=== PATIENT | female | born 1975 | race Two or more races ===

== ENCOUNTER → 2019-05-30 | Outpatient (CLI) | payer OTHER ==
[~2019-05-30] MED LIST: B-COTAB25 PO; CLOP75TA2 PO; FOLGTAB5 PO; ISOVUE-370 76% 100ML VIAL (Q9967) As Ordered ONE; MULTCAP PO; PROBCAP14 PO; RED1CAP5 PO; TAMO20TA8 PO; TURM1CAP5 PO
--- NOTE | 2019-05-30 17:37 | REPVR ---
PROCEDURE INFORMATION: Exam: CT Angiography Neck With Contrast Exam date and time: 05/30/2019 3:51 PM Age: 44 years old Clinical indication: TIA. History of chronic known 90% right ICA stenosis. TECHNIQUE: Imaging protocol: Computed tomography angiography of the neck with intravenous contrast. 3D rendering: MIP and/or 3D reconstructed images were created by the technologist. Radiation optimization: All CT scans at this facility use at least one of these dose optimization techniques: automated exposure control; mA and/or kV adjustment per patient size (includes targeted exams where dose is matched to clinical indication); or iterative reconstruction. Contrast material: ISOVUE 370; Contrast volume: 100 ml; Contrast route: IV; COMPARISON: MRA NECK W/O CONTRAST - OUTSIDE PRIOR 01/12/2019 5:26 PM FINDINGS: VASCULATURE: Right common carotid artery: No significant stenosis. No dissection or occlusion. Right internal carotid artery: Chronic severe stenosis of the right internal carotid artery starting from the origin and extending superiorly to the skull base (estimated focal areas of greater than 90% by NASCET criteria). Right external carotid artery: No occlusion or significant stenosis. Right vertebral artery: No significant stenosis. No dissection or occlusion. Left common carotid artery: No significant stenosis. No dissection or occlusion. Left internal carotid artery: Extracranial segment is patent with no significant stenosis (0% stenosis by NASCET criteria). No dissection or occlusion. Left external carotid artery: No occlusion or significant stenosis. Left vertebral artery: No significant stenosis. No dissection or occlusion. NECK: Bones/joints: No acute fracture. Soft tissues: Unremarkable. IMPRESSION: Chronic severe stenosis of the right internal carotid artery starting from the origin and extending superiorly to the skull base (estimated focal areas of greater than 90% by NASCET criteria). COMMENT: Reference per NASCET criteria for degree of stenosis: Mild: less than 50% stenosis. Moderate: 50-69% stenosis. Severe: 70-94% stenosis. Near occlusion: 95-99% stenosis. Electronically signed by: Calvin Robledo On 05/30/2019 17:37:42 PM
--- NOTE | 2019-05-30 17:44 | REPVR ---
PROCEDURE INFORMATION: Exam: CT Angiography Head With Contrast Exam date and time: 05/30/2019 3:51 PM Age: 44 years old Clinical indication: TIA. Chronic known right ICA/MCA stenosis TECHNIQUE: Imaging protocol: Computed tomography angiography of the head with intravenous contrast. 3D rendering: MIP and/or 3D reconstructed images were created by the technologist. Radiation optimization: All CT scans at this facility use at least one of these dose optimization techniques: automated exposure control; mA and/or kV adjustment per patient size (includes targeted exams where dose is matched to clinical indication); or iterative reconstruction. Contrast material: ISOVUE 370; Contrast volume: 100 ml; Contrast route: IV; COMPARISON: MRA HEAD W/O CONTRAST - OUTSIDE PRIOR 01/12/2019 5:44 PM FINDINGS: Right internal carotid artery: Chronic long segment severe stenosis of the visualized portions of the right ICA. Right anterior cerebral artery: Possible chronic occlusion of the right A1. Right A2 is patent secondary to presence of patent anterior communicating artery. Right middle cerebral artery: Chronic severe stenosis and/or occlusion of the proximal right M1. Distal right MCA branches are opacified, secondary to numerous small proximal ?puff of smoke" collaterals. Right posterior cerebral artery: No occlusion or significant stenosis. No aneurysm. Right vertebral artery: No occlusion or significant stenosis. No aneurysm. Left internal carotid artery: Intracranial segment is patent with no evidence of hemodynamically significant stenosis. No aneurysm. Left anterior cerebral artery: No occlusion or significant stenosis. No aneurysm. Left middle cerebral artery: No occlusion or significant stenosis. No aneurysm. Left posterior cerebral artery: No occlusion or significant stenosis. No aneurysm. Left vertebral artery: No occlusion or significant stenosis. No aneurysm. Basilar artery: No occlusion or significant stenosis. No aneurysm. IMPRESSION: 1. Chronic severe stenosis and/or occlusion of the proximal right M1. Distal right MCA branches are opacified, secondary to numerous small proximal ?puff of smoke" collaterals. Correlate for history of moyamoya. Follow-up at the discretion of neurology. 2. Chronic long segment severe stenosis of the visualized portions of the right ICA. 3. Possible chronic occlusion of the right A1. Right A2 is patent secondary to presence of patent anterior communicating artery. Electronically signed by: Calvin Robledo On 05/30/2019 17:44:00 PM
== END ==
LOC: M RAD 15:24
PROVIDERS: ATTEND Psychiatry & Neurology Neurology
DX: I65.21 Occlusion and stenosis of right carotid artery (principal)
CPT/HCPCS: 70496; 70498; Q9967

== ENCOUNTER → 2019-11-02 | Outpatient (CLI) | payer OTHER ==
[~2019-11-02] MED LIST changes: +ANAS1TAB2 PO; +D31000TA2 PO; -ISOVUE-370 76% 100ML VIAL (Q9967) As Ordered ONE
--- NOTE | 2019-11-02 14:54 | REP ---
ULTRASOUND LEFT AXILLA AND SUPRACLAVICULAR SOFT TISSUES: Real-time sonographic evaluation of the left axilla and supraclavicular soft tissues performed. No cystic or solid nodule is seen in these regions. IMPRESSION: No cystic or solid nodule seen in the left axillary or supraclavicular soft tissues. Electronically Signed by Urbano Causey MD 11/03/2019 09:33 A
--- NOTE | 2019-11-03 00:17 | REP ---
WHOLE BODY BONE SCAN: Following the intravenous administration of 21.5 mCi technetium-99m MDP, the patient's whole body is imaged in the anterior and posterior projections with additional oblique and lateral views obtained. There is focal increased uptake on the right at the L4-5 level, most likely representing arthritic changes when compared to the prior PET/CT of 01/09/2016. Smaller focus of increased uptake is seen on the left at the lumbosacral junction, also likely representing mild focal arthritic change. There is no compelling scintigraphic evidence of osseous metastases. No other foci of abnormal uptake are seen in the axial or appendicular skeleton. Renal and bladder activity are seen. IMPRESSION: No compelling scintigraphic evidence of osseous metastases. Focal increased uptake at the L4-5 and L5-S1 levels likely represents arthritic change, as discussed above. Electronically Signed by Urbano Causey MD 11/03/2019 09:39 A
== END ==
LOC: M RAD 09:49
PROVIDERS: ATTEND Specialist
DX: C50.919 Malignant neoplasm of unspecified site of unspecified female breast (principal)
CPT/HCPCS: 76882; 78306; A9503

== ENCOUNTER → 2020-05-30 | Outpatient (CLI) | payer OTHER ==
[~2020-05-30] MED LIST changes: +ASPI81CH33 PO; +CO Q200C10 PO; +MULT-90 PO
--- NOTE | 2020-05-30 13:40 | DEXAMM ---
INDICATION: BREAST CA,ON AI. COMPARISON: None. TECHNIQUE: Bone density was measured using dual-energy x-ray absorptiometry (DEXA). FINDINGS: AP SPINE L1-L4 BMD 0.910 g/cm2 Young Adult T-Score -2.3 Age Matched Z-Score -2.3. LT FEMUR, TOTAL BMD 0.837 g/cm2 Young Adult T-Score -1.4 Age Matched Z-Score -1.1. LT NECK BMD 0.906 g/cm2 Young Adult T-Score -1.0 Age Matched Z-Score -0.4. RT FEMUR, TOTAL BMD 0.857 g/cm2 Young Adult T-Score -1.2 Age Matched Z-Score -0.9. RT NECK BMD 0.896 g/cm2 Young Adult T-Score -1.0 Age Matched Z-Score -0.5. IMPRESSION: There is low bone density of the spine. There is low bone density of the left hip. There is low bone density of the right hip. FOLLOW-UP: Recommendation for the next bone density exam: 2 years. <Electronically signed by Urbano Causey > 05/30/20 [id number]
== END ==
LOC: M WHC 12:44
PROVIDERS: ATTEND Specialist
DX: C50.919 Malignant neoplasm of unspecified site of unspecified female breast (principal); Z79.811 Long term (current) use of aromatase inhibitors

== ENCOUNTER 2020-08-08 11:14 | Day surgery (SDC) | payer OTHER ==
[~2020-08-08] VITALS: Ht 154.9 cm; Wt 70.3 kg
[~2020-08-08 11:14] MED LIST changes: +NS 1,000 ML IV ONE; +[UNRECOGNIZED DRUG - OTHER] PO
[2020-08-08] MEDS ORDERED: fentaNYL 100 MCG/2 ML INJECTION (J3010) As Ordered ONE (13:07)
[2020-08-08] MEDS ORDERED: propofoL 500 MG/50 ML VIAL As Ordered ONE (13:07)
[2020-08-08] MEDS ORDERED: LIDOCAINE 2% 100MG/5ML SDV (FOR ANES.) As Ordered ONE (13:14)
--- NOTE | 2020-08-08 14:17 | ROOR ---
Patient Name: Emily Sanchez Procedure Date: 08/08/2020 1:58 PM Date of : 1975 Age: 45 Room: [facility] Gender: Female Note Status: Finalized Procedure: Upper Endoscopy + Biopsies Indications: Heartburn, Exclusion of Aguilera's esophagus Providers: Logan Lunsford MD Referring MD: ALE AGUILERA MD Requesting Provider: Medicines: Monitored Anesthesia Care Complications: No immediate complications. Procedure: Pre-Anesthesia Assessment: - The heart rate, respiratory rate, oxygen saturations, blood pressure, adequacy of pulmonary ventilation, and response to care were monitored throughout the procedure. The Endoscope was introduced through the mouth, and advanced to the second part of duodenum. The upper GI endoscopy was accomplished without difficulty. The patient tolerated the procedure well. Findings: The Z-line was regular and was found 35 cm from the incisors. Multiple biopsies were obtained with cold forceps for evaluation to rule out Aguilera's Esophagus randomly at the gastroesophageal junction. No other significant abnormalities were identified in a careful examination of the stomach. The exam of the duodenum was otherwise normal. Impression: - Z-line regular, 35 cm from the incisors. - Multiple biopsies were obtained at the gastroesophageal junction. - The examination was otherwise normal. Recommendation: - Patient has a contact number available for emergencies. The signs and symptoms of potential delayed complications were discussed with the patient. Return to normal activities tomorrow. Written discharge instructions were provided to the patient. - High fiber diet. - Discharge patient to home. - Follow an antireflux regimen. - Continue present medications. - Await pathology results. - Telephone GI clinic for pathology results in 1 week. - Return to referring physician. - The findings and recommendations were discussed with the patient. Procedure Code(s): --- Professional --- 80290, Esophagogastroduodenoscopy, flexible, transoral; with biopsy, single or multiple Diagnosis Code(s): --- Professional --- R12, Heartburn CPT copyright 2019 [employer]. All rights reserved. The codes documented in this report are preliminary and upon braille coder review may be revised to meet current compliance requirements. Logan Lunsford MD Logan Lunsford MD 08/08/2020 2:17:15 PM Electronically signed by Logan Lunsford MD Number of Addenda: 0 Note Initiated On: 08/08/2020 1:58 PM Estimated Blood Loss: Estimated blood loss: none.
--- NOTE | 2020-08-08 14:34 | ROOR ---
Patient Name: Emily Sanchez Procedure Date: 08/08/2020 2:01 PM Date of : 1975 Age: 45 Room: [facility] Gender: Female Note Status: Finalized Procedure: Total Colonoscopy to Cecum + ileoscopy Indications: Screening for colorectal malignant neoplasm, Last colonoscopy: 2008 Providers: Logan Lunsford MD Referring MD: ALE AGUILERA MD Requesting Provider: Medicines: Monitored Anesthesia Care Complications: No immediate complications. Procedure: Pre-Anesthesia Assessment: - The heart rate, respiratory rate, oxygen saturations, blood pressure, adequacy of pulmonary ventilation, and response to care were monitored throughout the procedure. The Colonoscope was introduced through the anus and advanced to the terminal ileum, with identification of the appendiceal orifice and IC valve. The colonoscopy was performed without difficulty. The patient tolerated the procedure well. The quality of the bowel preparation was excellent. Findings: The perianal and digital rectal examinations were normal. No other significant abnormalities were identified in a careful examination of the remainder of the colon. The exam was otherwise without abnormality on direct and retroflexion views. Retroflexion in the right colon was performed. The terminal ileum appeared normal. Impression: - The examination was otherwise normal on direct and retroflexion views. - The examined portion of the ileum was normal. - No specimens collected. - The exam was otherwise normal to the cecum. - The examined portion of the ileum was normal. Recommendation: - Patient has a contact number available for emergencies. The signs and symptoms of potential delayed complications were discussed with the patient. Return to normal activities tomorrow. Written discharge instructions were provided to the patient. - High fiber diet. - Discharge patient to home. - Continue present medications. - Repeat colonoscopy in 10 years for screening purposes. - Return to referring physician. - The findings and recommendations were discussed with the patient. Procedure Code(s): --- Professional --- 82157, Colonoscopy, flexible; diagnostic, including collection of specimen(s) by brushing or washing, when performed (separate procedure) Diagnosis Code(s): --- Professional --- Z12.11, Encounter for screening for malignant neoplasm of colon CPT copyright 2019 [employer]. All rights reserved. The codes documented in this report are preliminary and upon frame hand review may be revised to meet current compliance requirements. Logan Lunsford MD Logan Lunsford MD 08/08/2020 2:34:22 PM Electronically signed by Logan Lunsford MD Number of Addenda: 0 Note Initiated On: 08/08/2020 2:01 PM Estimated Blood Loss: Estimated blood loss: none.
[2020-08-08 15:03] VITALS: BP 137/78
== END 2020-08-08 15:05 | disposition home or self-care (01) ==
LOC: M OPP 11:14
PROVIDERS: ATTEND Internal Medicine Gastroenterology
DX: Z12.11 Encounter for screening for malignant neoplasm of colon (principal); R12 Heartburn; K21.9 Gastro-esophageal reflux disease without esophagitis; K58.1 Irritable bowel syndrome with constipation; Z79.899 Other long term (current) drug therapy; Z91.048 Other nonmedicinal substance allergy status; Z85.3 Personal history of malignant neoplasm of breast
CPT/HCPCS: 43239; 45378; 88305; J3010

== ENCOUNTER → 2021-12-04 | Outpatient (CLI) | payer OTHER ==
[~2021-12-04] MED LIST changes: -D31000TA2 PO; +KRIL1000 PO; -NS 1,000 ML IV ONE; +PROHANCE 279.3MG/ML 15ML VIAL ONE; +ROSU10TA6 PO; +VITA100093 PO
== END ==
LOC: M PLAIMG 14:26
PROVIDERS: ATTEND Internal Medicine Medical Oncology
DX: C50.812 Malignant neoplasm of overlapping sites of left female breast (principal)
CPT/HCPCS: A9576; C8908

== ENCOUNTER → 2022-10-24 | Outpatient (CLI) | payer OTHER ==
[~2022-10-24] MED LIST changes: -PROHANCE 279.3MG/ML 15ML VIAL ONE
== END ==
LOC: M WHC 08:57
PROVIDERS: ATTEND Specialist
DX: M81.0 Age-related osteoporosis without current pathological fracture (principal); M85.851 Other specified disorders of bone density and structure, right thigh; M85.852 Other specified disorders of bone density and structure, left thigh; Z79.811 Long term (current) use of aromatase inhibitors

== ENCOUNTER → 2023-12-31 | Outpatient (CLI) | payer OTHER ==
[~2023-12-31] MED LIST changes: +ATOR1TAB21; +CALC667T2 PO; -ROSU10TA6 PO; +ROSU10TA61 PO
== END ==
LOC: M WHC 14:55
PROVIDERS: ATTEND Specialist
DX: M81.0 Age-related osteoporosis without current pathological fracture (principal); M85.851 Other specified disorders of bone density and structure, right thigh; M85.852 Other specified disorders of bone density and structure, left thigh; Z85.3 Personal history of malignant neoplasm of breast

== ENCOUNTER → 2024-02-08 | Outpatient (CLI) | payer OTHER ==
[~2024-02-08] MED LIST changes: +PROHANCE 279.3MG/ML 15ML VIAL As Ordered ONE
== END ==
LOC: M RAD 07:57
PROVIDERS: ATTEND Internal Medicine Medical Oncology
DX: Z85.3 Personal history of malignant neoplasm of breast (principal); Z90.13 Acquired absence of bilateral breasts and nipples
CPT/HCPCS: A9576; C8908

== ENCOUNTER → 2024-11-16 | Outpatient (CLI) | payer OTHER ==
[~2024-11-16] MED LIST changes: +PROHANCE 279.3MG/ML 5ML VIAL As Ordered ONE
== END ==
LOC: M RAD 07:45
DX: Z85.3 Personal history of malignant neoplasm of breast (principal)
CPT/HCPCS: A9576; C8908